=== PATIENT | female | born 1990 | race Two or more races ===

== ENCOUNTER 2024-02-04 18:26 | Emergency (ER) | payer OTHER ==
[~2024-02-04] VITALS: Ht 165.1 cm; Wt 90.7 kg
[2024-02-04] MEDS ORDERED: DICLOFENAC SODI75 MG PO (19:44)
[2024-02-04] MEDS ORDERED: KETOROLAC TROMETHAMINE 60 MG VIAL IM ONE (19:45)
[2024-02-04] MEDS ORDERED: DEXAMETHASONE SODIUM PHOSPHATE 4 MG/ML VIAL IM ONE (19:45)
== END 2024-02-04 20:03 | disposition home or self-care (01) ==
LOC: ER 18:26
DX: S93.491A Sprain of other ligament of right ankle, initial encounter (principal); W05.2XXA Fall from non-moving motorized mobility scooter, initial encounter; Y93.I9 Activity, other involving external motion; Y92.413 State road as the place of occurrence of the external cause
CPT/HCPCS: 73610; 96372; 99283; J1100; J1885